=== PATIENT | female | born 1955 | race Caucasian/White ===

== ENCOUNTER 2016-09-02 18:15 | Inpatient (IN) | payer MEDICAID ==
[~2016-09-02] VITALS: Ht 154.9 cm; Wt 74.8 kg
[~2016-09-02 18:15] MED LIST: ALBU2TAB4; AMIT-188 PO; ATOR20TA PO; Aspirin PO; Benazepril Hcl PO; GLUCO8 PO; HUM100VI3 SQ; LINA5TAB PO; MECL25TA3 PO; NICO1PAT6 TD; Nitroglycerin TD; OMEP10CA4; SERT50TA PO; Tramadol Hcl PO
[2016-09-02] MEDS ORDERED: ACETAMINOPHEN 325MG TABLET PO STA (18:29)
[2016-09-02] MEDS ORDERED: SODIUM CHLORIDE 0.9% 1000ML BAG (SEPSIS BOLUS) IV ONE (18:30)
[2016-09-02 19:14] LABS: BASOPHILS % 0.5 % (0.0-2.0); DIFFERENTIAL COMMENT 0; EOSINOPHILS % 1.1 % (0.0-5.0); HEMATOCRIT. 34.7 % (36.0-48.0); HEMOGLOBIN. 10.7 g/dL (12.0-16.0); LYMPHOCYTES % 9.3 % (20.0-50.0); MEAN CORPUSCULAR HEMOGLOBIN 23.4 pg (28.0-32.0); MEAN CORPUSCULAR HGB CONC 30.8 g/dL (31.0-37.0); MEAN CORPUSCULAR VOLUME 75.9 fL (81.0-99.0); MEAN PLATELET VOLUME 7.1 fl (7.4-10.4); MONOCYTES % 5.9 % (2.0-8.0); NEUTROPHILS % 83.2 % (40.0-76.0); PLATELET 242 x1000/uL (130-400); RED BLOOD CELL COUNT 4.58 mill/uL (4.2-5.4); RED CELL DISTRIBUTION WIDTH 20.6 % (11.6-14.6); WHITE BLOOD COUNT 6.5 x1000/uL (4.5-11.0)
[2016-09-02 19:18] LABS: INR 1.1
[2016-09-02 19:23] LABS: TROPONIN I < 0.02 ng/mL (0.00-0.04)
[2016-09-02 19:25] LABS: ALANINE AMINOTRANSFERASE 17 IU/L (13-61); ALBUMIN 2.7 g/dL (3.4-5.0); ANION GAP 13; CALCIUM 8.7 mg/dL (8.5-10.1); CARBON DIOXIDE 24 mEq/L (21-32); CHLORIDE 107 mEq/L (98-107); INDEX HEMOLYSI 1 (1-3); INDEX ICTERIC 1 (1-4); INDEX LIPEMIC 1 (1-3); LIPASE 149 IU/L (73-393); NT PRO B-TYPE NATRIURETIC PEP 242 pg/mL (5-125); UREA NITROGEN BLOOD 14 mg/dL (7-21); eGFR > 60 mL/min (>60)
[2016-09-02 19:28] LABS: CLARITY URINE CLEAR (CLEAR); COLOR URINE YELLOW (YELLOW); GLUCOSE URINE NEGATIVE (NEGATIVE); KETONES URINE NEGATIVE (NEGATIVE); LEUKOCYTE ESTERASE URINE 1+ (NEGATIVE); NITRITE URINE NEGATIVE (NEGATIVE); OCCULT BLOOD URINE NEGATIVE (NEGATIVE); PH URINE 5.5 (4.5-8.0); PROTEIN URINE NEGATIVE (NEGATIVE); SPECIFIC GRAVITY URINE 1.021 (1.005-1.030)
[2016-09-02 19:44] LABS: RBC URINE 0-2 /hpf (0-2); WBC URINE 0-2 /hpf (0-2)
[2016-09-02 19:45] LABS: BACTERIA URINE 1+; COARSE GRANULAR CASTS URINE 0-5 /lpf; SQUAMOUS EPITHELIAL CELL URINE 1+ /lpf (RARE/1+)
[2016-09-02] MEDS ORDERED: VANCOMYCIN 1 G PREMIX 200 ML IV NR (20:00)
[2016-09-02] MEDS ORDERED: MEROPENEM 1,000 MG in SODIUM CHLORIDE 0.9% 100 ML IV NR (20:00)
[2016-09-02] MEDS ORDERED: CLONIDINE 0.1MG TABLET PO PRN (21:45)
[2016-09-02] MEDS ORDERED: MAGNESIUM/ALUMINUM HYDROXIDE/SIMETHICONE 30ML UDC PO PRN (21:45)
[2016-09-02] MEDS ORDERED: IPRATROPIUM/ALBUTEROL 0.5-3(2.5)MG/3ML NEB INH PRN (21:45)
[2016-09-02] MEDS: ACETAMINOPHEN 325MG TABLET PO PRN (22:48)
[2016-09-03] MEDS ORDERED: TRAMADOL 50MG TABLET PO ONE
[2016-09-03 00:06] LABS: CHLORIDE 112 mEq/L (98-107); INDEX HEMOLYSI 1 (1-3); INDEX ICTERIC 1 (1-4); INDEX LIPEMIC 1 (1-3)
[2016-09-03 00:15] LABS: ANION GAP 13; CALCIUM 7.8 mg/dL (8.5-10.1); CARBON DIOXIDE 20 mEq/L (21-32); MAGNESIUM 1.4 mg/dL (1.8-2.4); UREA NITROGEN BLOOD 10 mg/dL (7-21); eGFR > 60 mL/min (>60)
[2016-09-03] MEDS ORDERED: DEXTROSE 50% WATER 50ML SYRINGE IV PRN (00:30)
[2016-09-03 01:00] VITALS: BP 112/68
[2016-09-03] MEDS ORDERED: TRAMADOL 50MG TABLET PO PRN (01:30)
[2016-09-03] MEDS: SODIUM CHLORIDE 0.9% 1,000 ML IV SCH ×2 (01:53→16:26)
[2016-09-03] MEDS: PIPERACILLIN/TAZ 3.375G PREMIX 50 ML IV SCH ×4 (02:17→20:35)
[2016-09-03 04:00] VITALS: BP 107/61
[2016-09-03] MEDS ORDERED: VANCOMYCIN 1 G PREMIX 200 ML IV SCH (04:00)
[2016-09-03] MEDS: ACETAMINOPHEN 325MG TABLET PO PRN ×3 (04:15→21:11)
[2016-09-03 04:44] LABS: *COCAINE SCREEN URINE NEGATIVE (NEGATIVE); ECSTASY MDMA SCREEN URINE NEGATIVE (NEGATIVE); OPIATES URINE SCREEN NEGATIVE (NEGATIVE)
[2016-09-03 05:40] LABS: *AMPHETAMINES SCREEN URINE NEGATIVE (NEGATIVE); *BARBITURATES SCREEN URINE NEGATIVE (NEGATIVE); *BENZODIAZEPINES SCREEN URINE NEGATIVE (NEGATIVE); CANNABINOID URINE SCREEN NEGATIVE (NEGATIVE); METHADONE URINE SCREEN NEGATIVE (NEGATIVE); PHENCYCLIDINE URINE SCREEN NEGATIVE (NEGATIVE)
[2016-09-03] MEDS: BLOOD SUGAR DIAGNOSTIC STRIP TEST SCH ×4 (06:45→21:00)
[2016-09-03 07:04] LABS: BASOPHILS % 0.6 % (0.0-2.0); DIFFERENTIAL COMMENT 0; HEMATOCRIT. 30.5 % (36.0-48.0); HEMOGLOBIN. 9.7 g/dL (12.0-16.0); LYMPHOCYTES % 11.9 % (20.0-50.0); MEAN CORPUSCULAR HEMOGLOBIN 24.4 pg (28.0-32.0); MEAN CORPUSCULAR HGB CONC 31.8 g/dL (31.0-37.0); MEAN CORPUSCULAR VOLUME 76.7 fL (81.0-99.0); MEAN PLATELET VOLUME 7.2 fl (7.4-10.4); MONOCYTES % 6.8 % (2.0-8.0); NEUTROPHILS % 79.7 % (40.0-76.0); PLATELET 209 x1000/uL (130-400); RED BLOOD CELL COUNT 3.98 mill/uL (4.2-5.4); RED CELL DISTRIBUTION WIDTH 21.2 % (11.6-14.6); WHITE BLOOD COUNT 4.1 x1000/uL (4.5-11.0)
[2016-09-03 07:33] LABS: THYROID STIMULATING HORMONE 1.1 uIU/mL (0.36-3.74)
[2016-09-03 08:00] VITALS: BP 95/48
[2016-09-03] MEDS ORDERED: MAGNESIUM 2 G PREMIX 50 ML IV NR (08:00)
[2016-09-03] MEDS: BENAZEPRIL 5MG TABLET PO SCH (09:00)
[2016-09-03] MEDS: OMEPRAZOLE 20MG CAPSULE EXTENDED RELEASE PO SCH (09:18)
[2016-09-03] MEDS: MECLIZINE 25MG TABLET PO SCH (09:18)
[2016-09-03] MEDS: LINAGLIPTIN 5MG TABLET PO SCH (09:18)
[2016-09-03] MEDS: SERTRALINE HCL 50MG TABLET PO SCH (09:18)
[2016-09-03] MEDS: NICOTINE 7MG PATCH TD SCH (09:19)
[2016-09-03] MEDS: ENOXAPARIN 40MG/0.4ML SYR SUBCUT SCH (09:19)
[2016-09-03] MEDS: INSULIN LISPRO 100 UNITS/ML SUBCUT SCH ×4 (09:21→21:08)
[2016-09-03] MEDS: METFORMIN HCL 850MG TABLET PO SCH ×3 (09:53→18:37)
[2016-09-03 12:00] VITALS: BP 125/62
[2016-09-03 16:00] VITALS: BP 109/61
[2016-09-03] MEDS: MUPIROCIN 2% OINT 22GM TOP SCH (17:00)
[2016-09-03] MEDS: VANCOMYCIN 1 G PREMIX 200 ML IV SCH (18:14)
[2016-09-03] MEDS: ONDANSETRON HCL 4MG/2ML VIAL IV PRN (18:14)
[2016-09-03] MEDS: HYDROCODONE/ACETAMINOPHEN 5/325MG TABLET PO PRN (18:38)
[2016-09-03 20:00] VITALS: BP 118/69
[2016-09-03] MEDS: ATORVASTATIN CALCIUM 20MG TABLET PO SCH (20:31)
[2016-09-03] MEDS: AMITRIPTYLINE 50MG TABLET PO SCH (20:35)
[2016-09-04] VITALS: BP 97/57
[2016-09-04] MEDS: SODIUM CHLORIDE 0.9% 1,000 ML IV SCH (02:17)
[2016-09-04] MEDS: PIPERACILLIN/TAZ 3.375G PREMIX 50 ML IV SCH ×4 (02:17→22:24)
[2016-09-04 04:00] VITALS: BP 108/56
[2016-09-04] MEDS: VANCOMYCIN 1 G PREMIX 200 ML IV SCH ×2 (05:26→18:16)
[2016-09-04 05:36] LABS: BASOPHILS % 0.4 % (0.0-2.0); DIFFERENTIAL COMMENT 0; EOSINOPHILS % 0.6 % (0.0-5.0); HEMATOCRIT. 33.3 % (36.0-48.0); HEMOGLOBIN. 10.3 g/dL (12.0-16.0); MEAN CORPUSCULAR HEMOGLOBIN 23.4 pg (28.0-32.0); MEAN CORPUSCULAR HGB CONC 30.8 g/dL (31.0-37.0); MEAN CORPUSCULAR VOLUME 75.8 fL (81.0-99.0); MEAN PLATELET VOLUME 7.2 fl (7.4-10.4); MONOCYTES % 5.7 % (2.0-8.0); NEUTROPHILS % 77.3 % (40.0-76.0); PLATELET 189 x1000/uL (130-400); RED CELL DISTRIBUTION WIDTH 21.3 % (11.6-14.6); WHITE BLOOD COUNT 2.7 x1000/uL (4.5-11.0)
[2016-09-04 06:08] LABS: ANION GAP 14; CALCIUM 7.6 mg/dL (8.5-10.1); CARBON DIOXIDE 25 mEq/L (21-32); CHLORIDE 105 mEq/L (98-107); INDEX HEMOLYSI 1 (1-3); INDEX ICTERIC 1 (1-4); INDEX LIPEMIC 1 (1-3); MAGNESIUM 1.6 mg/dL (1.8-2.4)
[2016-09-04 06:13] LABS: VANCOMYCIN TROUGH 9.2 ug/mL (5.0-10.0); eGFR > 60 mL/min (>60)
[2016-09-04 06:22] LABS: UREA NITROGEN BLOOD 4 mg/dL (7-21)
[2016-09-04] MEDS: BLOOD SUGAR DIAGNOSTIC STRIP TEST SCH ×4 (06:42→21:00)
[2016-09-04] MEDS: BENAZEPRIL 5MG TABLET PO SCH (09:00)
[2016-09-04] MEDS: METFORMIN HCL 850MG TABLET PO SCH ×3 (09:22→18:16)
[2016-09-04] MEDS: ONDANSETRON HCL 4MG/2ML VIAL IV PRN ×2 (09:23→16:55)
[2016-09-04] MEDS: LINAGLIPTIN 5MG TABLET PO SCH (09:23)
[2016-09-04] MEDS: OMEPRAZOLE 20MG CAPSULE EXTENDED RELEASE PO SCH (09:25)
[2016-09-04] MEDS: HYDROCODONE/ACETAMINOPHEN 5/325MG TABLET PO PRN (09:26)
[2016-09-04] MEDS: SERTRALINE HCL 50MG TABLET PO SCH (09:28)
[2016-09-04] MEDS: MUPIROCIN 2% OINT 22GM TOP SCH ×3 (09:30→16:57)
[2016-09-04] MEDS: MECLIZINE 25MG TABLET PO SCH (09:30)
[2016-09-04] MEDS: NICOTINE 7MG PATCH TD SCH (09:30)
[2016-09-04] MEDS: ENOXAPARIN 40MG/0.4ML SYR SUBCUT SCH (09:32)
[2016-09-04] MEDS: INSULIN LISPRO 100 UNITS/ML SUBCUT SCH ×4 (09:48→23:01)
[2016-09-04 12:00] VITALS: BP 103/50
[2016-09-04] MEDS ORDERED: MAGNESIUM 2 G PREMIX 50 ML IV NR (14:00)
[2016-09-04 16:00] VITALS: BP 110/60
[2016-09-04 20:00] VITALS: BP_SYST 109; BP_SYST 118; BP_DIAS 62; BP_DIAS 66
[2016-09-04] MEDS: ATORVASTATIN CALCIUM 20MG TABLET PO SCH (22:25)
[2016-09-04] MEDS: AMITRIPTYLINE 50MG TABLET PO SCH (22:25)
[2016-09-05] VITALS: BP 126/81
[2016-09-05] MEDS: VANCOMYCIN 1 G PREMIX 200 ML IV SCH ×3 (00:50→17:23)
[2016-09-05] MEDS: SODIUM CHLORIDE 0.9% 1,000 ML IV SCH ×2 (00:53→03:15)
[2016-09-05 04:00] VITALS: BP 105/52
[2016-09-05] MEDS: PIPERACILLIN/TAZ 3.375G PREMIX 50 ML IV SCH ×4 (04:58→22:29)
[2016-09-05] MEDS: BLOOD SUGAR DIAGNOSTIC STRIP TEST SCH ×4 (07:20→21:00)
[2016-09-05] MEDS: INSULIN LISPRO 100 UNITS/ML SUBCUT SCH ×4 (07:50→22:55)
[2016-09-05 08:00] VITALS: BP 101/56
[2016-09-05] MEDS: METFORMIN HCL 850MG TABLET PO SCH ×3 (08:52→17:23)
[2016-09-05] MEDS: FAMOTIDINE 20MG TABLET PO SCH ×2 (08:52→22:28)
[2016-09-05] MEDS: MECLIZINE 25MG TABLET PO SCH (08:53)
[2016-09-05] MEDS: LINAGLIPTIN 5MG TABLET PO SCH (08:53)
[2016-09-05] MEDS: SERTRALINE HCL 50MG TABLET PO SCH (08:53)
[2016-09-05] MEDS: MUPIROCIN 2% OINT 22GM TOP SCH ×3 (08:54→17:24)
[2016-09-05] MEDS: NICOTINE 7MG PATCH TD SCH (08:54)
[2016-09-05] MEDS: BENAZEPRIL 5MG TABLET PO SCH (08:55)
[2016-09-05 12:00] VITALS: BP 108/55
[2016-09-05 13:16] LABS: ALPHA FETOPROTEIN TUMOR MARKER 1.5 ng/mL (0.0-8.3); CANCER ANTIGEN 125 12.7 U/mL (0.0-38.1)
[2016-09-05 16:00] VITALS: BP 91/55
[2016-09-05 20:00] VITALS: BP 90/57
[2016-09-05] MEDS: ATORVASTATIN CALCIUM 20MG TABLET PO SCH (22:28)
[2016-09-05] MEDS: AMITRIPTYLINE 50MG TABLET PO SCH (22:28)
[2016-09-06] VITALS: BP 99/46
[2016-09-06] MEDS: VANCOMYCIN 1 G PREMIX 200 ML IV SCH ×2 (00:46→08:54)
[2016-09-06] MEDS: SODIUM CHLORIDE 0.9% 1,000 ML IV SCH ×2 (00:50→21:32)
[2016-09-06] MEDS: PIPERACILLIN/TAZ 3.375G PREMIX 50 ML IV SCH ×4 (03:34→21:32)
[2016-09-06 04:00] VITALS: BP 97/55
[2016-09-06] MEDS: BLOOD SUGAR DIAGNOSTIC STRIP TEST SCH ×4 (07:23→21:33)
[2016-09-06 07:39] LABS: HEMATOCRIT. 28.5 % (36.0-48.0); HEMOGLOBIN. 9.1 g/dL (12.0-16.0); MEAN CORPUSCULAR HGB CONC 31.8 g/dL (31.0-37.0); MEAN CORPUSCULAR VOLUME 75.3 fL (81.0-99.0); MEAN PLATELET VOLUME 7.5 fl (7.4-10.4); PLATELET 127 x1000/uL (130-400); RED BLOOD CELL COUNT 3.79 mill/uL (4.2-5.4); RED CELL DISTRIBUTION WIDTH 21.3 % (11.6-14.6); WHITE BLOOD COUNT 3.7 x1000/uL (4.5-11.0)
[2016-09-06 07:53] LABS: CALCIUM 7.6 mg/dL (8.5-10.1); MAGNESIUM 1.8 mg/dL (1.8-2.4)
[2016-09-06 08:00] VITALS: BP 93/56
[2016-09-06] MEDS: METFORMIN HCL 850MG TABLET PO SCH ×2 (08:04→12:25)
[2016-09-06] MEDS: INSULIN LISPRO 100 UNITS/ML SUBCUT SCH ×4 (08:08→22:26)
[2016-09-06 08:17] LABS: DIFFERENTIAL COMMENT 1
[2016-09-06] MEDS: MECLIZINE 25MG TABLET PO SCH (08:54)
[2016-09-06] MEDS: LINAGLIPTIN 5MG TABLET PO SCH (08:55)
[2016-09-06] MEDS: SERTRALINE HCL 50MG TABLET PO SCH (08:55)
[2016-09-06] MEDS: FAMOTIDINE 20MG TABLET PO SCH (08:55)
[2016-09-06] MEDS: NICOTINE 7MG PATCH TD SCH (08:56)
[2016-09-06] MEDS: MUPIROCIN 2% OINT 22GM TOP SCH ×3 (08:57→17:35)
[2016-09-06] MEDS: BENAZEPRIL 5MG TABLET PO SCH (08:57)
[2016-09-06] MEDS: INSULIN DETEMIR UD 100 UNITS/ML SYR SUBCUT SCH ×2 (11:20→22:27)
[2016-09-06 11:56] LABS: INDEX HEMOLYSI 1 (1-3); INDEX ICTERIC 1 (1-4); INDEX LIPEMIC 1 (1-3); IRON 32 ug/dL (50-175); TOTAL IRON BINDING CAPACITY 285 ug/dL (250-450)
[2016-09-06 12:00] VITALS: BP 109/62
[2016-09-06 12:58] LABS: ANISOCYTOSIS 1+
[2016-09-06 12:59] LABS: PLATELET ESTIMATE SLIGHTLY DECREASED
[2016-09-06 16:00] VITALS: BP 95/61
[2016-09-06 20:00] VITALS: BP 112/67
[2016-09-06] MEDS: ATORVASTATIN CALCIUM 20MG TABLET PO SCH (21:32)
[2016-09-06] MEDS: AMITRIPTYLINE 50MG TABLET PO SCH (21:32)
[2016-09-07] VITALS (15 sets, daily range): BP systolic 103–140; BP diastolic 57–78
[2016-09-07] MEDS: HYDROCODONE/ACETAMINOPHEN 5/325MG TABLET PO PRN ×3 (02:43→16:28)
[2016-09-07] MEDS: PIPERACILLIN/TAZ 3.375G PREMIX 50 ML IV SCH ×4 (02:47→20:46)
[2016-09-07 06:47] LABS: HEMATOCRIT. 28.1 % (36.0-48.0); HEMOGLOBIN. 8.8 g/dL (12.0-16.0); MEAN CORPUSCULAR HEMOGLOBIN 23.5 pg (28.0-32.0); MEAN CORPUSCULAR HGB CONC 31.2 g/dL (31.0-37.0); MEAN CORPUSCULAR VOLUME 75.3 fL (81.0-99.0); MEAN PLATELET VOLUME 8.2 fl (7.4-10.4); PLATELET 132 x1000/uL (130-400); RED BLOOD CELL COUNT 3.73 mill/uL (4.2-5.4); RED CELL DISTRIBUTION WIDTH 21.5 % (11.6-14.6); WHITE BLOOD COUNT 7.4 x1000/uL (4.5-11.0)
[2016-09-07] MEDS: BLOOD SUGAR DIAGNOSTIC STRIP TEST SCH ×4 (07:20→21:22)
[2016-09-07 07:33] LABS: DIFFERENTIAL COMMENT 1
[2016-09-07 07:50] LABS: CALCIUM 7.8 mg/dL (8.5-10.1)
[2016-09-07] MEDS: INSULIN LISPRO 100 UNITS/ML SUBCUT SCH ×4 (07:50→21:23)
[2016-09-07] MEDS: LINAGLIPTIN 5MG TABLET PO SCH (09:00)
[2016-09-07] MEDS: BENAZEPRIL 5MG TABLET PO SCH (09:00)
[2016-09-07] MEDS: MECLIZINE 25MG TABLET PO SCH (09:00)
[2016-09-07] MEDS: NICOTINE 7MG PATCH TD SCH (09:04)
[2016-09-07] MEDS: MUPIROCIN 2% OINT 22GM TOP SCH ×3 (09:06→18:31)
[2016-09-07] MEDS ORDERED: FENTANYL CITRATE/PF 50MCG/ML 2ML VIAL ONE (09:58)
[2016-09-07] MEDS ORDERED: FENTANYL CITRATE/PF 50MCG/ML 2ML VIAL IV ONE (10:30)
[2016-09-07] MEDS: SERTRALINE HCL 50MG TABLET PO SCH (11:55)
[2016-09-07] MEDS: FAMOTIDINE 20MG TABLET PO SCH (11:56)
[2016-09-07 12:05] LABS: ANISOCYTOSIS 2+; PLATELET ESTIMATE NORMAL
[2016-09-07] MEDS: SODIUM CHLORIDE 0.9% 1,000 ML IV SCH ×2 (14:20→20:47)
[2016-09-07] MEDS: AMITRIPTYLINE 50MG TABLET PO SCH (20:46)
[2016-09-07] MEDS: ATORVASTATIN CALCIUM 20MG TABLET PO SCH (20:46)
[2016-09-07] MEDS: INSULIN DETEMIR UD 100 UNITS/ML SYR SUBCUT SCH (21:22)
[2016-09-08] VITALS: BP 108/72
[2016-09-08] MEDS: PIPERACILLIN/TAZ 3.375G PREMIX 50 ML IV SCH ×2 (02:24→08:35)
[2016-09-08] MEDS: SODIUM CHLORIDE 0.9% 1,000 ML IV SCH (02:34)
[2016-09-08 04:00] VITALS: BP 108/72
[2016-09-08] MEDS: BLOOD SUGAR DIAGNOSTIC STRIP TEST SCH (06:24)
[2016-09-08 08:00] VITALS: BP 117/81
[2016-09-08] MEDS: INSULIN LISPRO 100 UNITS/ML SUBCUT SCH (08:34)
[2016-09-08] MEDS: MECLIZINE 25MG TABLET PO SCH (08:35)
[2016-09-08] MEDS: BENAZEPRIL 5MG TABLET PO SCH (08:36)
[2016-09-08] MEDS: LINAGLIPTIN 5MG TABLET PO SCH (08:36)
[2016-09-08] MEDS: FAMOTIDINE 20MG TABLET PO SCH (08:36)
[2016-09-08] MEDS: SERTRALINE HCL 50MG TABLET PO SCH (08:36)
[2016-09-08] MEDS: MUPIROCIN 2% OINT 22GM TOP SCH (08:37)
[2016-09-08] MEDS: NICOTINE 7MG PATCH TD SCH (11:32)
[2016-09-08] MEDS: INSULIN DETEMIR UD 100 UNITS/ML SYR SUBCUT SCH (11:36)
[2016-09-08 12:00] VITALS: BP 126/71
[2016-09-08 12:26] VITALS: BP 117/81
== END 2016-09-08 13:10 | disposition home or self-care (01) | DRG 720 ==
LOC: ER 18:15 → 6EST 21:26
PROVIDERS: ADMIT Internal Medicine; ATTEND Internal Medicine
PROC: 0BBG3ZX Excision of Left Upper Lung Lobe, Percutaneous Approach, Diagnostic (ICD-10-PCS; principal; 2016-09-07)
DX: A41.9 Sepsis, unspecified organism (principal); N17.9 Acute kidney failure, unspecified; D69.6 Thrombocytopenia, unspecified; E83.42 Hypomagnesemia; J44.9 Chronic obstructive pulmonary disease, unspecified; I10 Essential (primary) hypertension; N39.0 Urinary tract infection, site not specified; E11.9 Type 2 diabetes mellitus without complications; D63.8 Anemia in other chronic diseases classified elsewhere; S81.802A Unspecified open wound, left lower leg, initial encounter; R91.1 Solitary pulmonary nodule; E78.5 Hyperlipidemia, unspecified; J45.909 Unspecified asthma, uncomplicated; F17.200 Nicotine dependence, unspecified, uncomplicated; D50.9 Iron deficiency anemia, unspecified; M19.90 Unspecified osteoarthritis, unspecified site; E78.00 Pure hypercholesterolemia, unspecified; Z90.49 Acquired absence of other specified parts of digestive tract; Z79.4 Long term (current) use of insulin; Z82.49 Family history of ischemic heart disease and other diseases of the circulatory system
CPT/HCPCS: 32405; 36415; 70450; 71010; 71250; 73590; 74176; 77012; 80048; 80053; 80061; 80202; 80305; 81001; 82105; 82378; 82728; 82962; 83036; 83540; 83550; 83605; 83690; 83735; 83880; 84443; 84484; 85025; 85610; 86300; 86301; 86304; 87040; 87070; 87075; 87086; 87102; 87116; 87205; 87804; 88305; 88312; 93005; 93970; 96361; 96365; 96366; 96367; 97116; 97163; 97167; 97535; 99285; 99406; C1893; J1650; J1815; J2185; J2405; J2543; J3010; J3370; J3475; J7030; J7050; J7620; J8597

== ENCOUNTER 2016-11-05 12:33 | Emergency (ER) | payer MEDICAID ==
[~2016-11-05] VITALS: Ht 172.7 cm; Wt 66.0 kg
[~2016-11-05 12:33] MED LIST changes: -GLUCO8 PO
[2016-11-05] MEDS ORDERED: SODIUM CHLORIDE 0.9% 1,000 ML IV ONE ×2 (12:43→13:07)
[2016-11-05] MEDS ORDERED: MORPHINE SULFATE 4 MG/ML CPJ (NOT FOR IM USE) IV STA (13:07)
[2016-11-05] MEDS ORDERED: FAMOTIDINE 20MG/2ML VIAL IV STA (13:07)
[2016-11-05] MEDS ORDERED: ONDANSETRON HCL 4MG/2ML VIAL IV STA (13:07)
[2016-11-05 13:17] LABS: INR 1.1; PARTIAL THROMBOPLASTIN TIME 24.7 sec (24.0-34.0); PROTHROMBIN TIME 11.2 sec
[2016-11-05 13:19] LABS: BASOPHILS % 0.5 % (0.0-2.0); EOSINOPHILS % 0.9 % (0.0-5.0); HEMATOCRIT. 34.5 % (36.0-48.0); HEMOGLOBIN. 10.9 g/dL (12.0-16.0); LYMPHOCYTES % 17.1 % (20.0-50.0); MEAN CORPUSCULAR HEMOGLOBIN 24.7 pg (28.0-32.0); MEAN CORPUSCULAR VOLUME 77.8 fL (81.0-99.0); MONOCYTES % 3.9 % (2.0-8.0); NEUTROPHILS % 77.6 % (40.0-76.0); PLATELET 236 x1000/uL (130-400); RED BLOOD CELL COUNT 4.44 mill/uL (4.2-5.4); RED CELL DISTRIBUTION WIDTH 22.8 % (11.6-14.6)
[2016-11-05 13:20] LABS: CARBON DIOXIDE 24 mEq/L (21-32); CHLORIDE 110 mEq/L (98-107)
[2016-11-05 14:06] LABS: PLATELET ESTIMATE NORMAL
[2016-11-05 17:36] VITALS: BP 110/65
== END 2016-11-05 17:40 | disposition home or self-care (01) ==
LOC: ER 13:39
DX: D64.9 Anemia, unspecified (principal); R10.13 Epigastric pain; K46.9 Unspecified abdominal hernia without obstruction or gangrene; M19.90 Unspecified osteoarthritis, unspecified site; J45.909 Unspecified asthma, uncomplicated; E11.9 Type 2 diabetes mellitus without complications; E78.00 Pure hypercholesterolemia, unspecified; I10 Essential (primary) hypertension; Z79.82 Long term (current) use of aspirin; Z79.899 Other long term (current) drug therapy; Z90.49 Acquired absence of other specified parts of digestive tract
CPT/HCPCS: 36415; 71010; 74176; 80053; 83690; 85025; 85610; 85730; 86850; 86900; 86901; 93005; 96361; 96374; 96375; 99285; G0482; J2270; J2405; J3490; J7030; Z7610

== ENCOUNTER 2021-05-04 02:23 | Emergency (ER) | payer MEDICARE, MEDICAID ==
[~2021-05-04] VITALS: Ht 149.9 cm; Wt 68.0 kg
[~2021-05-04 02:23] MED LIST changes: -OMEP10CA4; +OMEP10CA5
[2021-05-04] MEDS ORDERED: ONDANSETRON 4MG ODT PO STA (02:59)
[2021-05-04] MEDS ORDERED: MAGNESIUM/ALUMINUM HYDROXIDE/SIMETHICONE 30ML UDC PO STA (02:59)
[2021-05-04] MEDS ORDERED: VISCOUS LIDOCAINE 2% 15 ML UDC PO STA (02:59)
[2021-05-04 03:30] VITALS: BP 125/51
[2021-05-04 03:39] LABS: BASOPHILS % 0.6 % (0.0-2.0); EOSINOPHILS % 0.5 % (0.0-5.0); HEMATOCRIT. 36.4 % (36.0-48.0); HEMOGLOBIN. 11.2 g/dL (12.0-16.0); LYMPHOCYTES % 10.4 % (20.0-50.0); MEAN CORPUSCULAR HEMOGLOBIN 22.1 pg (28.0-32.0); MEAN CORPUSCULAR VOLUME 71.9 fL (81.0-99.0); MEAN PLATELET VOLUME 6.5 fl (7.4-10.4); MONOCYTES % 5.2 % (2.0-8.0); NEUTROPHILS % 83.3 % (40.0-76.0); PLATELET 314 x1000/uL (130-400); RED BLOOD CELL COUNT 5.06 mill/uL (4.2-5.4)
[2021-05-04 04:09] LABS: CHLORIDE 106 mEq/L (98-107)
[2021-05-04 04:12] LABS: ETHANOL BLOOD < 10 mg/dL
[2021-05-04 04:14] LABS: *AMPHETAMINES SCREEN URINE NEGATIVE (NEGATIVE); *BARBITURATES SCREEN URINE NEGATIVE (NEGATIVE); *BENZODIAZEPINES SCREEN URINE NEGATIVE (NEGATIVE); *COCAINE SCREEN URINE NEGATIVE (NEGATIVE); CANNABINOID URINE SCREEN NEGATIVE (NEGATIVE); METHADONE URINE SCREEN NEGATIVE (NEGATIVE)
[2021-05-04 04:15] LABS: OPIATES URINE SCREEN NEGATIVE (NEGATIVE); PHENCYCLIDINE URINE SCREEN NEGATIVE (NEGATIVE)
[2021-05-04 04:17] LABS: PLATELET ESTIMATE NORMAL
== END 2021-05-04 05:20 | disposition home or self-care (01) ==
LOC: ER 02:49
DX: R10.9 Unspecified abdominal pain (principal); I10 Essential (primary) hypertension; Z90.49 Acquired absence of other specified parts of digestive tract; Z79.899 Other long term (current) drug therapy
CPT/HCPCS: 36415; 80053; 80305; 80320; 83690; 85025; 93005; 99284; Q0162; G0480

== ENCOUNTER 2022-04-17 18:12 | Emergency (ER) | payer MEDICARE, MEDICAID ==
[~2022-04-17] VITALS: Ht 154.9 cm; Wt 68.0 kg
[2022-04-17 22:01] LABS: BASOPHILS % 0.7 % (0.0-2.0); EOSINOPHILS % 0.7 % (0.0-5.0); HEMATOCRIT. 38.1 % (36.0-48.0); HEMOGLOBIN. 12.4 g/dL (12.0-16.0); LYMPHOCYTES % 12.4 % (20.0-50.0); MEAN CORPUSCULAR HEMOGLOBIN 27.2 pg (28.0-32.0); MEAN CORPUSCULAR VOLUME 83.8 fL (81.0-99.0); MEAN PLATELET VOLUME 6.6 fl (7.4-10.4); MONOCYTES % 5.7 % (2.0-8.0); NEUTROPHILS % 80.5 % (40.0-76.0); PLATELET 302 x1000/uL (130-400); RED BLOOD CELL COUNT 4.55 mill/uL (4.2-5.4); RED CELL DISTRIBUTION WIDTH 18.1 % (11.6-14.6)
[2022-04-17 22:08] LABS: CHLORIDE 106 mEq/L (98-107)
[2022-04-18] MEDS: AMPICILLIN SOD/SULBACTAM NA 3 G in SODIUM CHLORIDE 0.9% 100 ML IV SCH ×2 (06:00→13:12)
[2022-04-18 15:43] VITALS: BP 158/61
== END 2022-04-18 16:04 | disposition short-term general hospital (02) ==
LOC: ER 18:12 → CANBEDREQ 04-18 17:27
DX: L03.116 Cellulitis of left lower limb (principal); L03.115 Cellulitis of right lower limb; L97.829 Non-pressure chronic ulcer of other part of left lower leg with unspecified severity; L97.819 Non-pressure chronic ulcer of other part of right lower leg with unspecified severity; E11.9 Type 2 diabetes mellitus without complications; E78.00 Pure hypercholesterolemia, unspecified; I10 Essential (primary) hypertension; Z79.4 Long term (current) use of insulin; Z79.82 Long term (current) use of aspirin; Z90.49 Acquired absence of other specified parts of digestive tract; Z20.822 Contact with and (suspected) exposure to COVID-19
CPT/HCPCS: 36415; 71045; 80053; 82962; 83880; 84484; 85025; 87040; 87426; 93005; 93970; 96365; 99285; C9803; J0295; J7050

== ENCOUNTER 2024-04-10 19:44 | Emergency (ER) | payer MEDICARE, MEDICAID ==
[~2024-04-10] VITALS: Ht 162.6 cm; Wt 68.0 kg
[~2024-04-10 19:44] MED LIST changes: +ALBU2TAB17; -ALBU2TAB4; -AMIT-188 PO; +AMIT50TA4 PO
[2024-04-10 19:50] VITALS: BP 114/54; PULSE 84; RESP 16; TEMP 99.4; O2SAT 96
== END 2024-04-10 20:50 | disposition left against medical advice (07) ==
LOC: ER 19:44
DX: R10.9 Unspecified abdominal pain (principal); Z53.21 Procedure and treatment not carried out due to patient leaving prior to being seen by health care provider